=== PATIENT | female | born 1945 | race Caucasian/White ===

== ENCOUNTER → 2019-01-27 12:16 | Outpatient (CLI) | payer MEDICARE, OTHER, SELFPAY ==
--- NOTE | 2019-01-27 | DI.MG.S_ITS ---
BILATERAL DIGITAL SCREENING MAMMOGRAM 3D/2D WITH CAD: 01/27/2019 CLINICAL: Routine screening. Family history of breast cancer. Comparison is made to exams dated: 10/12/2017 mammogram, 04/02/2015 mammogram, and 07/08/2016 mammogram - [facility]. There are scattered fibroglandular elements in both breasts. Current study was also evaluated with a Computer Aided Detection (CAD) system. There is a benign biopsy clip in the left breast. No significant masses, calcifications, or other findings are seen in either breast. There has been no significant interval change. IMPRESSION: NEGATIVE There is no mammographic evidence of malignancy. A 1 year screening mammogram is recommended. This exam was interpreted at Station ID: [id number]. NOTE: For mammograms, a report in lay terms will be sent to the patient. Approximately 15% of breast malignancies will not be visualized mammographically. In the management of a palpable breast mass, a negative mammogram must not discourage biopsy of a clinically suspicious lesion. Electronically Signed By: Bladimir chambers/valentine:01/27/2019 13:14:27 letter sent: Normal Exam ACR BI-RADS Category 1: Negative [id number]
== END ==
PROVIDERS: Family Provider Physician Assistant; PCP Physician Assistant; Visit Provider Physician Assistant
DX: Z12.31 Encounter for screening mammogram for malignant neoplasm of breast (principal); Z80.3 Family history of malignant neoplasm of breast; M85.852 Other specified disorders of bone density and structure, left thigh; Z78.0 Asymptomatic menopausal state; E07.9 Disorder of thyroid, unspecified; Z82.62 Family history of osteoporosis
CPT/HCPCS: 77063; 77067; 77080

== ENCOUNTER → 2020-01-12 15:38 | Outpatient (CLI) | payer MEDICARE, OTHER, SELFPAY ==
--- NOTE | 2020-01-12 15:45 | DI.RAD.S_ITS ---
PROCEDURE: XR CERVICAL SPINE 2V OR 3V INDICATIONS: Numbness in arms and hands TECHNIQUE: 3 view(s) of the cervical spine were acquired. COMPARISON: None. FINDINGS: Bones: No fractures or dislocations to the T1 level. The lateral masses of C1 appear intact on the odontoid view. No suspicious bony lesions. There is multilevel degenerative disc disease and facet osteoarthritis from C2 inferiorly and most pronounced from C4-C7. On the frontal projection the facet osteoarthritis is much more prominent on the left than the right, likely resulting in asymmetric left sided predominant nerve root impingement. Soft tissues: No prevertebral soft tissue swelling. IMPRESSION: Multilevel degenerative changes as discussed with facet osteoarthritis much more prominent on the left than the right and likelihood of multilevel nerve root impingement, left greater than right. Spinal stenosis also would be suspected given the degree of degeneration seen. Given symptomatology and these findings followup by MR scanning may be warranted. Dictated by: Ralph Shaffer M.D. on 01/12/2020 at 17:08 Approved by: Ralph Shaffer M.D. on 01/12/2020 at 17:17
== END ==
PROVIDERS: Family Provider Physician Assistant; PCP Physician Assistant; Referring Provider Physician Assistant; Visit Provider Physician Assistant
DX: M47.22 Other spondylosis with radiculopathy, cervical region (principal); R20.0 Anesthesia of skin
CPT/HCPCS: 72040

== ENCOUNTER → 2020-01-19 12:32 | Outpatient (CLI) | payer MEDICARE, OTHER, SELFPAY ==
--- NOTE | 2020-01-19 | DI.MRI.S_ITS ---
PROCEDURE: MR CERVICAL SPINE WO CON INDICATIONS: Radiculopathy, cervical region TECHNIQUE: Noncontrast sagittal T1 spin echo and T2 fast spin echo, sagittal STIR, foraminal oblique sagittal T2 fast spin echo, and axial gradient echo or T2 fast spin echo through the cervical spine. COMPARISON: None. FINDINGS: Image quality: Excellent. Alignment and Curvature: Grade 1 anterolisthesis of C4 on C5 and C5 on C6. Bone Marrow: No fracture identified. Multilevel degenerative endplate sclerosis and spurring. Diffuse facet arthropathy. Spinal Cord: Visualized spinal cord has normal size and signal. No cerebellar tonsillar herniation. Paraspinous Soft Tissues: No paravertebral masses. Prevertebral soft tissues are normal in thickness. C2-C3: Normal appearance. C3-C4: Minimal central canal narrowing. Severe right foraminal stenosis with nerve root compression. Mild left foraminal stenosis. C4-C5: Mild central canal narrowing. Moderate right foraminal stenosis with nerve root compression. Severe left foraminal stenosis with nerve root compression C5-C6: Minimal central canal narrowing. Mild to moderate right foraminal stenosis with borderline nerve root compression. Severe left foraminal stenosis with neurocompression C6-C7: Minimal central canal narrowing. Moderate foraminal stenosis, with nerve root compression. Severe left foraminal stenosis with neurocompression C7-T1: No definite central or right foraminal stenosis. Mild left foraminal narrowing with slight nerve root compression IMPRESSION: Multilevel cervical spondylosis and facet arthropathy Grade 1 anterolisthesis of C4 on C5 and C5 on C6 No high-grade canal stenosis. Diffuse, bilateral foraminal stenoses as detailed above by spinal level. Dictated by: Sujit Yoon M.D. on 01/19/2020 at 13:55 Approved by: Sujit Yoon M.D. on 01/19/2020 at 14:04
== END ==
PROVIDERS: Family Provider Physician Assistant; PCP Physician Assistant; Referring Provider Physician Assistant; Visit Provider Physician Assistant
DX: M47.22 Other spondylosis with radiculopathy, cervical region (principal); M48.02 Spinal stenosis, cervical region; M43.12 Spondylolisthesis, cervical region
CPT/HCPCS: 72141

== ENCOUNTER 2020-05-09 01:07 | Observation (INO) | payer MEDICARE, OTHER, SELFPAY ==
[2020-05-09] VITALS (16 sets, daily range): BP systolic 90–125; BP diastolic 45–72; PULSE 68–108; RESP 13–20; TEMP 36.1–37.2; O2SAT 92–99; BMI 25.0
--- NOTE | 2020-05-09 | PATH_ITS ---
[facility] Accession Number: [id number] . 01 Material submitted: . appendix - APPENDIX . 01 Clinical history: . SENT BY [employer]; STATES APPENDICITIS/ABD PAIN . 02 Diagnosis: Appendix, Appendectomy: Acute appendicitis and serositis with features of disruption / possible rupture at gross examination. Small, distored portion of smooth muscle, possibly a diverticulum or fibrous obliteration of the appendiceal tip; immunohistochemistry studies pending for further characterization. V 05/14/2020 1504 Local . 02 Electronically signed: . Denise Flowers MD, Pathologist NPI- [id number] . 01 Gross description: . Specimen A is received in formalin, labeled with patient identification and appendix. It consists of a disrupted vermiform appendix measuring 2.8 cm in length and up to 1.1 cm in diameter. The attached yellow-jo and lobulated mesoappendiceal adipose tissue is 4.5 x 2.4 x 1.5 cm. The proximal end is inked blue. The serosa is pink-jo, dull, and hemorrhagic. Sectioning reveals a pinpoint lumen. The mucosa is white-jo and rough. The wall thickness is up to 0.5 cm. The entire appendix is submitted in three cassettes. . Summary of sections: A1 - proximal margins and cross-sections of appendix, two pieces. A2-A3 - the entire bisected appendiceal tips, pair, one piece each. ([id number])) /V 05/14/2020 1437 Local . 02 Pathologist provided ICD-10: K35.80 . 02 CPT . 248449, [id number] Performed at: 01 [facility] [address], [place], [place] [id number] MD Jerry Tejeda MD Phone: [phone] Performed at: 02 [facility] [id number] [place] [id number] MD Yue Burton MD Phone: [phone]
--- NOTE | 2020-05-09 01:33 | ED.ABDPAIN ---
HPI - Abdominal Pain General Chief Complaint: Abdominal Pain Stated Complaint: sent by [facility]/ appendicitis/abd pain Time Seen by Provider: 05/09/20 01:09 Source: patient Mode of arrival: Ambulatory Limitations: no limitations History of Present Illness HPI narrative: 74-year-old female nonsmoker with history of hypothyroid presents with a chief complaint of right lower quadrant pain gradually worsening over the course of the day. She has had fever and nausea but no vomiting. Her pain worsens with movement and improves with rest. She denies any diarrhea nor dysuria, frequency or urgency. She initially presented to an outside facility and was diagnosed with acute appendicitis and stabs were taken to arrange for transfer here as this is where her primary care provider works and where she feels most comfortable. She had a CT at an outside facility noting a dilation of the appendix measuring 17 mm, lying posterior to the cecum without pneumoperitoneum or abscess. She has been NPO over the course of the day. She has an IV in place and labs were sent over noting elevation her white blood cell count. She denies any exposure to persons known to have [place] it has had no symptoms but expects to be swabbed here. complaint: abdominal pain Onset (ago): hour(s) Pain Consistency: constant Location: RLQ Severity: moderate Quality: cramping and aching Radiation: none Relieving factors: rest Exacerbating factors: movement Associated symptoms: nausea and fever Related Data Home Medications Medication Instructions Recorded Confirmed cyanocobalamin (vitamin B-12) 2,500 #0 10/23/17 levothyroxine 50 mcg PO DAILY 05/09/20 05/09/20 Allergies Allergy/AdvReac Type Severity Reaction Status Date / Time No Known Drug Allergies Allergy Verified 05/09/20 01:36 Review of Systems Constitutional Constitutional: Denies chills, Denies fatigue, Reports fever(s), Denies frequent falls, Denies lethargy and Denies weakness Eyes Eyes: Denies change in vision, Denies eye discharge, Denies irritation and Denies loss of vision ENT Ears, Nose, Mouth, and Throat: Denies change in voice, Denies dizziness, Denies neck pain, Denies sore throat and Denies throat swelling Cardiovascular Cardiovascular: Denies chest pain, Denies irregular heart rhythm, Denies lightheadedness, Denies palpitations, Denies dyspnea, Denies dyspnea on exertion and Denies orthopnea Respiratory Respiratory: Denies cough, Denies dyspnea, Denies dyspnea on exertion and Denies wheezing Gastrointestinal Gastrointestinal: Reports abdominal pain, Denies change in bowel habits, Denies diarrhea, Reports nausea and Denies vomiting Musculoskeletal Musculoskeletal: Denies neck pain and Denies numbness Integumentary/Breasts Skin/Breast: Denies pruritus, Denies erythema, Denies rash and Denies wounds Neurologic Neurologic: Denies behavioral changes, Denies confusion, Denies dizziness, Denies frequent falls, Denies loss of vision, Denies numbness and Denies weakness Psychiatric Psychiatric: Denies anxiety, Denies behavioral changes, Denies confusion, Denies depression, Denies homicidal ideation and Denies suicidal ideation Endocrine Endocrine: Denies fatigue, Denies flushing and Denies palpitations Hematologic/Lymphatic Hematologic/Lymphatic: Denies easy bruising Allergic/Immunologic Allergic/Immunologic: Denies urticaria, Denies throat swelling and Denies wheezing Patient History Surgical History Status post arthroscopy Status post delivery Status post parathyroidectomy Social History Smoking Status: Never smoker Smoking Status: Never smoker alcohol intake frequency: 0-2 drinks per day Exam Narrative Exam Narrative: GENERAL: [74] year old patient appears stated age. Well-nourished, well-developed patient, in mild distress. HEAD: Atraumatic. Normocephalic. EYES: Pupils equal round and reactive. Extraocular motions intact. No scleral icterus. No injection or drainage. ENT: Nose without bleeding, purulent drainage. Throat without erythema, tonsillar hypertrophy or exudate. Airway patent. NECK: Trachea midline. Non tender CARDIOVASCULAR: Regular rate and rhythm without murmurs, gallops, or rubs. RESPIRATORY: Clear to auscultation. Breath sounds equal bilaterally. No wheezes, rales, or rhonchi. GASTROINTESTINAL: Abdomen soft, tender in the right lower quadrant with localized peritonitis, nondistended. Negative heel tap, obturator or Rovsing EXTREMITIES: No edema or joint tenderness. BACK: Nontender without deformity or crepitance. No flank tenderness. NEURO: AOx3. SKIN: No rash or erythema of visible areas Course Course Course Narrative: patient expected by surgery, Dr. Steele contacted, will see patient early this morning for planned surgical intervention Discharge Plan Departure Patient Disposition: Admitted as Observation Clinical Impression: Acute appendicitis Qualifiers: Acute appendicitis type: with localized peritonitis Appendicitis gangrene presence: without gangrene Appendicitis perforation presence: without perforation Appendicitis abscess presence: without abscess Qualified Code(s): K35.30 - Acute appendicitis with localized peritonitis, without perforation or gangrene Admit Date/Time: 05/09/20 01:23 Admit Provider: Gutierrez Steele
[2020-05-09] MEDS: PIPERACILLIN-TAZO 3.375 GM/50 ML FROZ.PIGGY IV ×3 (02:15→20:36)
[2020-05-09] MEDS: SODIUM CHLORIDE 0.9% 1,000 ML 125 ML IV ×2 (02:15→11:19)
[2020-05-09 02:31] LABS: COVID19 -Nasal RAPID Negative (Negative)
--- NOTE | 2020-05-09 07:19 | PM.HP.1 ---
History of Present Illness History of Present Illness Date Patient Seen: 05/09/20 Time Patient Seen: 07:00 Chief complaint: sent by [facility]/states appendicitis/abd pain Narrative: The patient is a woman who developed pain in her right abdomen 2 evenings ago. The pain increased and became more diffuse yesterday. It was persistent all through the day. She came to the ER it would be and requested transfer to our institution for surgical treatment. She has never had this pain before. The pain increases with movement and with palpation. Pain level is about the same as it was in the ER last night. It has not increased. Her only prior operations are a . Patient History Medical History (Updated 05/09/20 @ 07:34 by Gutierrez Steele MD) Arthritis (Acute) Hypothyroidism (Acute) Surgical History Status post arthroscopy Status post delivery Status post parathyroidectomy Family & Social History Social History: household members none Prior Living Arrangements House Safety & Behavioral: Feels Safe in Current Yes Environment Been Physically Hurt or No Threatened By a Person Suicidal Ideation Description None Suicide Plan Description No Plan Tobacco & Substance use: Smoking Status Never smoker alcohol intake current alcohol intake frequency a few times a week Substance Use Type does not use Meds Home Medications and Allergies Home Medications Medication Instructions Recorded Confirmed Type levothyroxine 50 mcg PO DAILY 05/09/20 05/09/20 History Allergies Allergy/AdvReac Type Severity Reaction Status Date / Time No Known Drug Allergies Allergy Verified 05/09/20 01:36 Review of Systems Review of Systems Narrative: Patient denies any visual difficulties at this time. No unusual hair loss. 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 That apparently went well. No double vision pain arise no earaches tinnitus no sore throat no trouble swallowing no tooth aches no cough cold or asthma. No chest pain unusual shortness of breath or heart problems or murmurs that she is aware of. She has had a parathyroidectomy and her calcium levels she reports as being normal since. The patient had a colonoscopy years ago. She is not sure exactly when but she says it has been sometime ago. No black or bloody bowel movements. No unusual diarrhea or constipation. No dysuria or hematuria or history of kidney stones. No seizures or blackouts. No anxiety or depression. Patient does get numbness in her fingers at times and has been told it is probably due to carpal tunnel. It goes away when she gets up And moves about. No unusual bruising or bleeding. No fever chills and no skin lesions that are new or worrisome to her. She does have arthritis in both knees and hip. She says she will ultimately need a knee replacement but is not ready for that yet. Exam Vital Signs (past 8 hours): - 05/09/20 01:15 05/09/20 01:52 05/09/20 01:57 Temperature 98.9 F 97.5 F L Pulse Rate 108 H 106 H 103 H Respiratory Rate 19 16 18 Blood Pressure 125/72 117/70 125/72 Pulse Oximetry 99 97 99 Oxygen Delivery Method Room Air Oxygen Flow Rate 0 Narrative Exam Narrative: Cooperative woman in no apparent distress though she is laying still. Vital signs noted. Her eyes are nonicteric. Pupils are round reactive to light. Ears without lesion. Nasal septum midline no polyps seen. Teeth are intact. Mucosa of the mouth is little dry with no open lesions. No splits in the lips. Neck is supple. There are no nodes in the neck or supraclavicular areas. Trachea is midline mobile. I feel no masses in the neck or thyroid. Her lungs are clear to auscultation without rales or rhonchi. Equal percussion. Heart regular rate and rhythm without murmur gallop. No bruit in the neck. Abdomen is distended soft. There is tenderness in the right lower quadrant. No guarding at this time. No palpable masses. No ventral hernias appreciated. 2+ pulses at the wrist. Extremities without cyanosis clubbing edema or deformity. Patient is alert and oriented x3. Speech rate and content are appropriate. Affect is appropriate. Objective Imaging CT scan - abdomen: Radiologist's impression: Consistent with acute appendicitis. Labs Labs: Laboratory Results - last 24 hr 05/09/20 01:30 COVID-19 PCR Negative Assessment & Plan Assessment and plan (1) Hypothyroidism: Problem details: Will continue patient's levothyroxine. She is on fairly low dose. She does not really have any symptoms of hypo her or hypothyroidism at this time. Will start this after her operation. Status: Acute (2) Acute appendicitis: Problem details: Discussed laparoscopic appendectomy with the patient. Risk of bleeding, infection, hernia discussed with her. Alternate diagnoses discussed. All questions were answered. She appears to understand and wishes to proceed. Will fit her into the OR schedule hopefully this morning. Qualifiers: Acute appendicitis type: with localized peritonitis Appendicitis abscess presence: without abscess Appendicitis gangrene presence: without gangrene Appendicitis perforation presence: without perforation Qualified Code(s): K35.30 - Acute appendicitis with localized peritonitis, without perforation or gangrene Status: Acute Quality VTE Deep Vein Thrombosis/Pulmonary Embolism Present on Admission: No
--- NOTE | 2020-05-09 08:03 | PM.PREOP ---
Pre-operative Note COVID-19 COVID-19 status: Negative Result date/Date tested (Pos, Neg/Pending): 05/09/20 Interval Note History & Physical reviewed/Exam performed by Physician: Yes Changes to H&P: No
--- NOTE | 2020-05-09 10:42 | PC.NURSE ---
Patient will be going to surgery around 1230 today. She is A&Ox3, denies pain and is mostly sleeping. IVF infusing and patient is tolerating well. She knows to call if she needs pain medication.
[2020-05-09] MEDS: LACTATED RINGERS 1,000 ML 42 ML IV (13:31)
--- NOTE | 2020-05-09 14:02 | SUR.OPER ---
Supine on padded OR bed, head on pillow, arms secured on padded arm boards at <90 degrees abduction, legs uncrossed, safety belt at thigh, tape over blanket over lower legs.
[2020-05-09] MEDS: BUPIVACAINE 0.5% (PF) VIAL 30 ML INJ (14:09)
--- NOTE | 2020-05-09 14:33 | CM.DANOTE ---
Patient is a 74 year old female who was admitted on 05/09/20 for Acute Appendicitis. Pt has [facility] and [employer] for insurance and her PCP is Jeannine Egan. EMR was reviewed. Per Surgeon, surgery recommended for Lap Appe and scheduled for surgery today around 1200. SW met bedside with pt and explained role and pt confirms that she lives alone in [place] and has local supportive friends and neighbors but no local family. Pt drives and is independent at baseline and fairly active. Son/DAYNA Bond lives in [place] and has plans to come visit in June and pt hopeful that she will heal quickly after surgery to d/c home without much need for assist. Pt states her friend and neighbor can help if needed with hauling groceries and things as pt will be restricted from lifting after surgery. Pt denies any hx of HH or SNF and does not anticipate needs at d/c. Friend plans to provide transport at d/c. Plan: SW to follow after surgery today for appendicitis towards confirming pt safe for d/c home with friend support and any further discharge planning needs. AMINA Dykes Discharge Planning/Care Management CM Discharge Assessment Start: 05/09/20 14:31 Freq: Status: Active Protocol: Document 05/09/20 14:31 BF (Rec: 05/09/20 14:33 BF [id number]) Discharge Planning Assessment Assigned Maintenance Trainer [employer]/Assigned Designee Name patricia Ruth Contact Information [phone] Advance Directives? No Advance Directives on File No History Provided By Patient,Medical Record Has Patient been admitted in last 30 No days? Prior Living Arrangements House Household Members none Type of transporation used prior to Drives own vehicle admit Comment Lives at home alone and is independent and drives at baseline Independent with ADL's Yes Is patient alert and oriented? Yes Caregiver for Another No Comment Likely home with friend assist pending surgery Barriers to Discharge No Discharge Plan Home Transportation Arrangement Friend can provide transport home at d/c Referrals Initiated None needed Additional Comment Waiting for post surgery needs Whiteboard Updated in Patient Room with Yes name and ext. # of Maintenance Trainer Review Status In Process Please Provide Date Initial DC 05/09/20 Assessment Was Performed Next Review Type Continued Stay Review
--- NOTE | 2020-05-09 15:21 | PM.OP.1 ---
Operative Date/Time/Diagnoses Date of procedure: 05/09/20 Time of procedure: 15:21 Pre-op diagnosis: ACUTE APPENDICITIS Post-op diagnosis: same Procedure & Clinicians Procedure: Laparoscopic appendectomy Same procedure as scheduled: Yes Indications: Abdominal pain, right lower quadrant tenderness with an abnormal CT consistent with appendicitis Surgeon: Gutierrez Steele Click Yes if Unassisted: Yes Anesthesia Type: General Operative Notes Findings: Appendix inflamed. Not clearly perforated. Closure Type: primary Specimen(s): other (Appendix) Prosthetic devices, grafts, tissues, transplants, or devices: None Estimated Blood Loss (mL): 10 Blood products transfused: none Procedure in detail: Patient was placed supine on the operating table and underwent general endotracheal anesthesia. A Patricio was placed. She was prepped and draped in the usual fashion. A curvilinear incision was made through an old scar in the infraumbilical site. It was carried down under direct vision in the peritoneal cavity. Stay sutures of 0 Vicryl were placed in the fascia. A 12 mm port was inserted and the abdomen is insufflated. Two additional ports were placed 1 in between the pubis and umbilicus and 1 left lower quadrant. The patient was repositioned using the bed controls and identified the base of the appendix. I could not see much beyond it due to adhesions. These were taken down sharply and with cautery. I was able mobilize the appendix. It was difficult to tell where the tip was and therefore I made a window at the base of the appendix through the mesentery and placed 2 0 Vicryl ties at this level. They were tied down. A clamp was placed distal to this and the appendix was transected and the dissection of the mesentery commenced. I divided most of this with cautery or dissection. Anything vascular was cauterized before dividing. The appendix is freed and immediately placed in a bag and removed without difficulty. The only spillage was where there was transection (a drop or 2 of liquid), which is impossible to prevent. The right abdomen was irrigated and suctioned free of fluid. The pelvis was irrigated and suctioned free of fluid. There is no ongoing bleeding. The ports were all removed. Stay sutures at the umbilicus were tied after placing a 2 0 PDS between them. The wounds were irrigated local anesthetic was infiltrated and a 4 0 Vicryl subcuticular stitch was used to close the skin in all areas. Mastisol and Steri-Strips were placed. Dressing was applied and patient tolerated the procedure well. Complications: none Post-operative Condition: stable Disposition: PACU
--- NOTE | 2020-05-09 15:52 | SUR.PHASEI ---
Pt arises to voice, dressings x3 D&I
--- NOTE | 2020-05-09 16:00 | SUR.PHASEI ---
Pt awake now and on room air without problems, denies pain and dressings x3 to abdomen D&I, denies nausea and refusing ice chips or oral fluids at this time. Report given to floor RN
[2020-05-09] MEDS: LEVOTHYROXINE 50 MCG TABLET PO (17:09)
[2020-05-09] MEDS: KETOROLAC 15 MG/ML VIAL IV (17:09)
[2020-05-09] MEDS: SODIUM CHLORIDE 0.9% FLUSH 10 ML IV (17:10)
[2020-05-09] MEDS: LACTATED RINGERS 1,000 ML 125 ML IV (17:14)
--- NOTE | 2020-05-09 18:40 | PC.NURSE ---
ANSHUL Shift. pt AO and receptive to care. pt arrived from OR at approximately 1510. Reporting a 4-6/10 pressure type pain to abdomen. 3 lap sites covered with a Band-aid type dressing, CDI. LR infusing to right wrist at 125ml/hr and tolerating well. IS at bedside and pt utilizing. Tolerating a clear diet without nausea. SCD's on. IV toradol for pain (went from a 6/10 to 4/10).
[2020-05-10] MEDS: LACTATED RINGERS 1,000 ML 125 ML IV (01:32)
[2020-05-10 05:00] VITALS: BP 105/58; PULSE 73; RESP 18; TEMP 36.6; O2SAT 95
[2020-05-10 05:46] LABS: Add Manual Diff / Slide Review NO; Basophils Absolute Auto 0 /uL (0-100); Basophils Percent Auto 0.1 % (0-2); Eosinophils Absolute Auto 0 /uL (0-450); Hematocrit 30.8 % (36-46); Hemoglobin 10.9 g/dL (12.0-16.0); Lymphocytes Absolute Auto 500 /uL (1100-4500); Mean Corpuscular HGB Conc 35.5 % (30-36); Mean Corpuscular Hemoglobin 35.1 PG (26-34); Mean Corpuscular Volume 99.1 fL (80-100); Monocytes Absolute Auto 300 /uL (0-900); Monocytes Percent Auto 4.4 % (3-14); Neutrophils Absolute Auto 6900 /uL (1500-7000); Neutrophils Percent Auto 88.5 % (50-75); Platelet Count 199 X10^3/uL (150-400); Red Blood Cell Count 3.11 X10^6/uL (4.0-5.2); Red Cell Distribution Width 13.1 % (11.6-14.8); White Blood Cell Count 7.8 X10^3/uL (4.5-11.0)
[2020-05-10] MEDS: LEVOTHYROXINE 50 MCG TABLET PO (06:15)
--- NOTE | 2020-05-10 06:15 | PC.NURSE ---
At time of assessment had not passed flatus post-op. At time of AM meds reports she passed flatus overnight.
[2020-05-10 07:45] VITALS: BP 98/67; PULSE 82; RESP 18; TEMP 36.8; O2SAT 93
[2020-05-10] MEDS: OXYCODONE/ACETAMINOPHEN 5/325 TABLET 2 TAB PO ×2 (08:35→13:36)
[2020-05-10] MEDS: ENOXAPARIN 40 MG/0.4 ML SYRINGE SUBCUT (08:38)
--- NOTE | 2020-05-10 09:21 | CM.DPC ---
DCP: continued: Case received, EMR reviewed and plan for d/c to home setting after recovery from surgery is noted. Pt will have support of friend/neighbor and a friend will be taking her home. Dr. Steele did take pt to surgery yesterday late afternoon as planned: Laproscopic Appendectomy: appendix inflamed but no perforation per his op note. P: discuss in Team Rounds and follow prn for any d/c needs that may arise.
[2020-05-10 11:24] VITALS: BP 92/60; PULSE 68; RESP 18; TEMP 36.6; O2SAT 98
--- NOTE | 2020-05-10 13:08 | P.DS_ITS ---
History of Present Illness History of Present Illness Chief complaint: sent by [facility]/states appendicitis/abd pain Narrative: The patient is a woman who developed pain in her right abdomen 2 evenings ago. The pain increased and became more diffuse yesterday. It was persistent all through the day. She came to the ER it would be and requested transfer to our institution for surgical treatment. She has never had this pain before. The pain increases with movement and with palpation. Pain level is about the same as it was in the ER last night. It has not increased. Her only prior operations are a . Discharge Providers Provider Date of admission: 05/09/20 01:23 Discharge Date: 05/10/20 Primary care physician: Jeannine Egan PA-C Consults: 05/09/20 16:49 Consult to Discharge Planning Routine Comment: Discharge provider: Gutierrez Steele MD Summary Hospital Course Discharge Diagnosis: acute appendicitis with local inflammation. Hypothyroidism chronic controlled with medication Hospital Course: The patient was admitted begun on IV antibiotics and taken to the operating room where she underwent laparoscopic appendectomy. There did not appear to be perforation. Postoperatively her white blood cell count came down to normal. She was tolerating a diet and she was discharged to follow up in the office. Exam Vital Signs (past 8 hours): - 05/10/20 07:45 05/10/20 11:24 Temperature 98.2 F 98 F Pulse Rate 82 68 Respiratory Rate 18 18 Blood Pressure 98/67 92/60 Pulse Oximetry 93 98 Oxygen Delivery Method Room Air Oxygen Flow Rate 0 Narrative Exam Narrative: Band-Aids intact and dry. No evidence of cellulitis. Abdomen is protuberant/distended but soft and no unusual tenderness. Preoperative pain is resolved. Objective Labs Result Diagrams: 05/10/20 05:11 Labs: Laboratory Results - last 24 hr 05/10/20 05:11 WBC 7.8 RBC 3.11 L Hgb 10.9 L Hct 30.8 L MCV 99.1 MCH 35.1 H MCHC 35.5 RDW 13.1 Plt Count 199 Neut % (Auto) 88.5 H Lymph % (Auto) 7.0 L Barron % (Auto) 4.4 Eos % (Auto) 0.0 L Baso % (Auto) 0.1 Neut # (Auto) 6900 Lymph # (Auto) 500 L Barron # (Auto) 300 Eos # (Auto) 0 Baso # (Auto) 0 Discharge Plan Discharge Plan Patient Disposition: Home Discharge comment: Your pain medicine prescription was sent to [facility] in [place] Discharge orders & Medications Prescriptions: New oxycodone-acetaminophen [Percocet] 5-325 mg tablet 1 tab PO Q4H PRN (Reason: painful procedure) Qty: 10 RF: 0 Continued levothyroxine 50 mcg tablet 50 mcg PO DAILY RF: 0 Follow up/Referrals: Jeannine Egan PA-C [Primary Care Provider] - Gutierrez Steele MD [Physician] - 05/24/20 1:45 pm (Follow up appointment is May 24 at 1:45 PM, please check in at 1:30 PM. If you need to reach a doctor please call the office. If it is after hours listen to the entire message and at the end you will be automatically connected with our page tool machine set up operator who will call the doctor on-call for our practice.) Diet/Activity/Treatments Diet: Diet as Tolerated Activity: Avoid lifting over 10 lb or straining for the next 4 weeks. You may walk. Skin/Wound/Dressing Care Report to your healthcare provider any signs of infection, such as:: chills, fever, increased pain, unusual drainage and unusual redness Dressing: Removed Band-Aids tomorrow you may shower. Leave Steri-Strips tape under the Band-Aids fall off on its own. Visit Report/Discharge Packet Instructions: DI for an Appendectomy, How to Prevent Falls, DI for Postoperative Pain, DI for Prescription Opioid Use, Oxycodone/Acetaminophen (By mouth) Visit Report Forms: Patient Portal/API, Stroke Signs & Symptoms Discharge Data Primary Care Provider: Jeannine Egan Attending Provider: Gutierrez Steele Admit Date/Time: 05/09/20 01:23 Quality VTE Deep Vein Thrombosis/Pulmonary Embolism Present on Admission: No
--- NOTE | 2020-05-10 13:47 | PC.NURSE ---
Day Shift- Pt reported 2-3/10 aching pain to abd, more to right side with tenderness. PRN Percocet 1/2 tab given per pt request with good effect. 1/2 tab PRN dose given prior to discharge. Discharge summary packet reviewed with pt. F/U appointment made and pt aware. Pt states she will get milk of magnesia per Dr. Steele recommendations to prevent constipation. Pt states has all belongings and her friend Denice will be picking her up for discharge to take home. pt left unit in no distress at 1338 via wheelchair with PEARL GLUE OPERATOR.
--- NOTE | 2020-05-17 17:06 | PC.NURSE ---
Late Entry: Zosyn infusion initiated 05/09 at 20:36, complete 05/09 at 21:06.
== END 2020-05-10 13:38 | disposition home or self-care (01) ==
LOC: ED 01:23 → AC 01:24
PROVIDERS: Admitting Provider Specialist; Emergency Provider Emergency Medicine; Family Provider Physician Assistant; PCP Physician Assistant; Referring Provider Emergency Medicine; Visit Provider Specialist
PROC: 0DTJ4ZZ Resection of Appendix, Percutaneous Endoscopic Approach (ICD-10-PCS; CPT 44970; principal; 2020-05-09 12:45)
DX: K35.30 Acute appendicitis with localized peritonitis, without perforation or gangrene (principal); R10.31 Right lower quadrant pain; E03.9 Hypothyroidism, unspecified; Z11.59 Encounter for screening for other viral diseases
CPT/HCPCS: 44970; 36415; 82962; 85025; 87635; 96365; 96366; 96372; 96375; 99219; 99283; G0378; J1100; J1650; J1885; J2405; J2543; J2704; J3010

== ENCOUNTER → 2020-05-12 10:18 | Outpatient (CLI) | payer MEDICARE, OTHER, SELFPAY ==
[2020-05-09 01:52] VITALS: BMI 25.0
[2020-05-12 11:01] LABS: Add Manual Diff / Slide Review NO; Basophils Absolute Auto 0 /uL (0-100); Basophils Percent Auto 0.8 % (0-2); Eosinophils Absolute Auto 100 /uL (0-450); Eosinophils Percent Auto 1.6 % (2-4); Hemoglobin 12.6 g/dL (12.0-16.0); Lymphocytes Absolute Auto 1200 /uL (1100-4500); Lymphocytes Percent Auto 18.9 % (25-40); Mean Corpuscular HGB Conc 34.9 % (30-36); Mean Corpuscular Hemoglobin 34.7 PG (26-34); Mean Corpuscular Volume 99.3 fL (80-100); Monocytes Absolute Auto 400 /uL (0-900); Monocytes Percent Auto 7.2 % (3-14); Neutrophils Absolute Auto 4400 /uL (1500-7000); Neutrophils Percent Auto 71.5 % (50-75); Platelet Count 265 X10^3/uL (150-400); Red Blood Cell Count 3.63 X10^6/uL (4.0-5.2); White Blood Cell Count 6.2 X10^3/uL (4.5-11.0)
[2020-05-12 11:16] LABS: Alanine Aminotransferase 16 IU/L (<35); Albumin Globulin Ratio 1.3 (1.0-2.8); Alkaline Phosphatase 64 U/L (38-126); Aspartate Aminotransferase 23 IU/L (14-36); BUN Creatinine Ratio 11.6 (6-22); Bilirubin Total 0.9 mg/dL (0.2-1.3); Blood Urea Nitrogen 8 mg/dL (7-17); Calcium 9.5 mg/dL (8.4-10.2); Carbon Dioxide 31 mmol/L (22-32); Chloride 103 mmol/L (98-107); Estimated Glomerular Filt Rate > 60.0 mL/min (>60); Globulin 3.2 g/dL (1.7-4.1); Glucose 104 mg/dL (80-110); HEMOLYSIS < 15 (0-50); Potassium 3.9 mmol/L (3.4-5.1); Sodium 139 mmol/L (137-145); Total Protein 7.2 g/dL (6.3-8.2)
[2020-05-12 11:32] LABS: Procalcitonin < 0.05 ng/mL (<0.5)
== END ==
PROVIDERS: Family Provider Physician Assistant; PCP Physician Assistant; Referring Provider Specialist; Visit Provider Specialist
DX: K35.30 Acute appendicitis with localized peritonitis, without perforation or gangrene (principal); R50.82 Postprocedural fever
CPT/HCPCS: 36415; 80053; 84145; 85025

== ENCOUNTER → 2020-06-22 12:16 | Outpatient (CLI) | payer MEDICARE, OTHER, SELFPAY ==
[2020-05-09 01:52] VITALS: BMI 25.0
--- NOTE | 2020-06-22 | DI.RAD.S_ITS ---
PROCEDURE: XR CHEST 2V INDICATIONS: Shortness of breath TECHNIQUE: 2 views of the chest were acquired. COMPARISON: None. FINDINGS: Surgical changes and devices: None. Lungs and pleura: Lungs are clear. No pleural effusions or pneumothorax. Mediastinum: Mediastinal contours are normal. Heart size is normal. Bones and chest wall: No suspicious bony abnormalities. Soft tissues appear unremarkable. IMPRESSION: Normal for age, source of current shortness of breath symptoms is not seen. Dictated by: Ralph Shaffer M.D. on 06/22/2020 at 13:14 Approved by: Ralph Shaffer M.D. on 06/22/2020 at 13:14
== END ==
PROVIDERS: Family Provider Physician Assistant; PCP Physician Assistant; Referring Provider Physician Assistant; Visit Provider Physician Assistant
DX: R06.02 Shortness of breath (principal)
CPT/HCPCS: 71046

== ENCOUNTER → 2020-07-05 12:56 | Outpatient (CLI) | payer MEDICARE, OTHER, SELFPAY ==
[2020-05-09 01:52] VITALS: BMI 25.0
--- NOTE | 2020-07-05 | DI.CT.S_ITS ---
PROCEDURE: CT ANGIO CHEST PE PROTOCOL INDICATIONS: SHORTNESS OF BREATH TECHNIQUE: After the administration of intravenous contrast, 2 mm thick sections acquired from the pulmonary apices to the posterior costophrenic angles. 3-dimensional maximum intensity projection (MIP) coronal and sagittal reformats were then acquired through the thorax. For radiation dose reduction, the following was used: automated exposure control, adjustment of mA and/or kV according to patient size. COMPARISON: [facility], CR, XR CHEST 2V, 06/22/2020, 12:39. [facility], RG, CT ABDOMEN/PELVIS WITH CONTRAST, 05/08/2020, 22:15. FINDINGS: Image quality: Excellent. Pulmonary arteries: Pulmonary arteries are normal in size, and demonstrate no intraluminal filling defects to suggest central pulmonary embolism. Lungs and pleura: Linear densities in the lingula the and lower lobes are most likely scars and atelectasis. There is a 1 cm sub solid nodule in the left lower lobe (series 6, image 198), probably round atelectasis. No pleural effusions or pneumothorax. Central and peripheral airways are patent. Mediastinum: Heart size is normal, without pericardial effusion. No mediastinal or hilar adenopathy. Thoracic aorta is normal in caliber and enhancement. Esophagus is normal in caliber. Small hiatal hernia. Bones and chest wall: No suspicious bony lesions. Ribs and thoracic spine appear intact throughout. Thyroid gland is normal. No axillary or supraclavicular adenopathy. Abdomen: A 1 cm cyst is noted in the the anterior segment of the right hepatic lobe. Visualized upper abdominal solid organs appear normal in the early arterial phase of enhancement. IMPRESSION: 1. No evidence for pulmonary embolism. 2. No airspace opacities in lungs. 3. A 1 cm sub solid nodule in the left lower lobe, most likely round atelectasis. Recommend a short-term follow-up CT in 3 months. 4. Lingular and bilateral lower lobe scars and atelectasis. Dictated by: Hai Kumar M.D. on 07/05/2020 at 14:15 Approved by: Hai Kumar M.D. on 07/05/2020 at 14:28
[2020-07-05 13:23] LABS: Add Manual Diff / Slide Review NO; Basophils Absolute Auto 0 /uL (0-100); Basophils Percent Auto 0.7 % (0-2); Eosinophils Absolute Auto 100 /uL (0-450); Eosinophils Percent Auto 1.5 % (2-4); Hematocrit 41.3 % (36-46); Hemoglobin 14.1 g/dL (12.0-16.0); Lymphocytes Absolute Auto 1300 /uL (1100-4500); Lymphocytes Percent Auto 19.3 % (25-40); Mean Corpuscular Hemoglobin 33.6 PG (26-34); Mean Corpuscular Volume 98.9 fL (80-100); Monocytes Absolute Auto 300 /uL (0-900); Monocytes Percent Auto 4.8 % (3-14); Neutrophils Absolute Auto 4900 /uL (1500-7000); Neutrophils Percent Auto 73.7 % (50-75); Platelet Count 271 X10^3/uL (150-400); Red Blood Cell Count 4.18 X10^6/uL (4.0-5.2); Red Cell Distribution Width 13.4 % (11.6-14.8); White Blood Cell Count 6.6 X10^3/uL (4.5-11.0)
[2020-07-05 13:29] LABS: D Dimer 218 ng/mL (<230)
[2020-07-05 13:30] LABS: Alanine Aminotransferase 19 IU/L (<35); Albumin 4.3 g/dL (3.5-5.0); Albumin Globulin Ratio 1.3 (1.0-2.8); Alkaline Phosphatase 71 U/L (38-126); Aspartate Aminotransferase 23 IU/L (14-36); BUN Creatinine Ratio 16.4 (6-22); Bilirubin Total 0.9 mg/dL (0.2-1.3); Blood Urea Nitrogen 12 mg/dL (7-17); Calcium 9.3 mg/dL (8.4-10.2); Carbon Dioxide 25 mmol/L (22-32); Chloride 107 mmol/L (98-107); Cholesterol 272 mg/dL (140-199); Estimated Glomerular Filt Rate > 60.0 mL/min (>60); Globulin 3.2 g/dL (1.7-4.1); Glucose 109 mg/dL (80-110); HDL Cholesterol 76 mg/dL (40-60); HEMOLYSIS < 15 (0-50); LDL Cholesterol Calculated 142 mg/dL (<100); Potassium 3.7 mmol/L (3.4-5.1); Sodium 138 mmol/L (137-145); Total Protein 7.5 g/dL (6.3-8.2); Triglycerides 269 mg/dL (35-150)
[2020-07-05 13:38] LABS: NT-proBNP (BNP-Adult 18+) 96 pg/mL (<125)
[2020-07-05 14:08] LABS: TSH w/ Reflex to FT4 2.88 uIU/mL (0.47-4.68)
== END ==
PROVIDERS: Family Provider Physician Assistant; PCP Physician Assistant; Referring Provider Physician Assistant; Visit Provider Physician Assistant
DX: R06.02 Shortness of breath (principal); F41.1 Generalized anxiety disorder; J98.4 Other disorders of lung; J98.11 Atelectasis; R91.1 Solitary pulmonary nodule; E78.5 Hyperlipidemia, unspecified; E03.9 Hypothyroidism, unspecified; K44.9 Diaphragmatic hernia without obstruction or gangrene
CPT/HCPCS: 36415; 71275; 80053; 80061; 83880; 84443; 85025; 85379; Q9967

== ENCOUNTER → 2020-10-04 12:53 | Outpatient (CLI) | payer MEDICARE, OTHER, SELFPAY ==
[2020-05-09 01:52] VITALS: BMI 25.0
[2020-10-04 13:32] LABS: COVID19 -Nasal RAPID Negative (Negative)
== END ==
PROVIDERS: Family Provider Physician Assistant; PCP Physician Assistant; Referring Provider Internal Medicine; Visit Provider Internal Medicine
DX: Z11.59 Encounter for screening for other viral diseases (principal)
CPT/HCPCS: 87635; C9803

== ENCOUNTER → 2020-10-05 08:59 | Outpatient (CLI) | payer MEDICARE, OTHER, SELFPAY ==
[2020-05-09 01:52] VITALS: BMI 25.0
--- NOTE | 2020-10-09 08:25 | PM.PFT.1 ---
Pulmonary Function Test Referral & Results Date Patient Seen: 10/05/20 Requesting provider: Jeannine Egan Results: The spirometry demonstrates an FVC of 2.61 L which is 87% of predicted. The FEV1 was measured at 2.07 L which is 92% of predicted. The FEV1/FVC ratio was 79 which is 105% of predicted. Following the administration of bronchodilator there was no appreciable change to above normal numbers. Lung volumes show an SVC of 2.56 L which is 88% of predicted. The diffusing capacity was measured at 17.78 which is 69% of predicted. No hemoglobin value was provided, so no correction for potential anemia could be made, if appropriate. The maximum voluntary ventilation was reduced slightly Interpretation: This study demonstrates normal spirometry and probably normal overall. There may be a minimal reduction in maximum voluntary ventilation Clinical correlation suggested
== END ==
PROVIDERS: Family Provider Physician Assistant; PCP Physician Assistant; Referring Provider Physician Assistant; Visit Provider Physician Assistant
DX: R06.02 Shortness of breath (principal); J98.8 Other specified respiratory disorders
CPT/HCPCS: 94060; 94726; 94729

== ENCOUNTER → 2020-11-20 12:27 | Outpatient (CLI) | payer MEDICARE, OTHER, SELFPAY ==
[2020-05-09 01:52] VITALS: BMI 25.0
--- NOTE | 2020-11-20 12:44 | DI.CT.S_ITS ---
PROCEDURE: CT CHEST WO CON INDICATIONS: 3 MONTH F/U LLL LUNG NODULE TECHNIQUE: Noncontrast 2.0-2.5 mm thick sections acquired from the pulmonary apices to the posterior costophrenic angles. 7 mm thick axial MIP and 5 mm coronal and sagittal reformats were then acquired. A low radiation dose technique was utilized. COMPARISON: [facility], CT, CT ANGIO CHEST PE PROTOCOL, 07/05/2020, 13:51. FINDINGS: Image quality: Diagnostic, given the low radiation dose technique. Lungs and pleura: Mild platelike atelectasis is present in the dependent lung bases. The posterior left basilar pulmonary radiopacities described on the study dated July 05, 2020 have resolved and may have represented aspiration or infection. No new acute airspace opacities or pulmonary nodules. No pleural effusion or pneumothorax. Mediastinum: Heart size is normal. No pericardial effusion. No mediastinal adenopathy by size criteria. Thoracic aorta and central pulmonary arteries are normal in size. Scattered atheromatous calcifications are present within the aortic arch. Esophagus is normal in caliber. No hiatal hernia. Bones and chest wall: No suspicious bony lesions. No vertebral body compression fractures. No axillary or supraclavicular adenopathy by size criteria. Thyroid gland is unremarkable . Abdomen: Visualized upper abdomen solid organs and bowel loops appear normal in the absence of contrast. IMPRESSION: 1. Resolution of the left basilar pulmonary radiopacities when compared with the CT dated July 05, 2020. No further follow-up recommended. 2. No new acute airspace opacities or pulmonary nodules. Fleischner Society criteria for SOLID lung nodule followup. Nodule size (mm)Low-risk patientHigh-risk patient<6 (single or multiple)No routine followup.Optional CT at 12 months. 6-8 (single or multiple)CT at 6-12 months, then optional CT at 18-24 mo.CT at 6-12 months, then CT at 18-24 months. >8 (single)CT at 3 months, PET-CT, or biopsy. Same as for low-risk pts. >8 (multiple)CT at 3-6 months, then optional CT at 18-24 mo.CT at 3-6 months, then CT at 18-24 months. Fleischner Society criteria for SUB-SOLID lung nodule followup. Solitary pure ground-glass nodules<6 mm (ground glass or part solid)No followup needed. 6 mm or larger (ground glass)CT at 6-12 months to confirm persistence, then CT every 2 years until 5 years.6 mm or larger (part solid)CT at 3-6 months to confirm persistence, then annual CT until 5 years if unchanged and solid component remains <6 mm. Multiple sub-solid nodules<6 mmCT at 3-6 months, then CT consider at 2 & 4 years for high risk patients. [address] at 3-6 months. Subsequent management based on most suspicious lesions. Recommendations do not apply to lung cancer screening, patients with immunosuppression, or patients with known primary cancer. Dictated by: Aleksandra Boykin M.D. on 11/20/2020 at 14:59 Approved by: Aleksandra Boykin M.D. on 11/20/2020 at 15:02
== END ==
PROVIDERS: Family Provider Physician Assistant; PCP Physician Assistant; Referring Provider Physician Assistant; Visit Provider Physician Assistant
DX: R91.1 Solitary pulmonary nodule (principal)
CPT/HCPCS: 71250

== ENCOUNTER → 2020-12-20 19:07 | Outpatient (ROUT) | payer MEDICARE, OTHER, SELFPAY ==
[2020-05-09 01:52] VITALS: BMI 25.0
[2020-12-20 19:22] LABS: Hematocrit 40.8 % (36-46); Hemoglobin 13.6 g/dL (12.0-16.0); Mean Corpuscular HGB Conc 33.3 % (30-36)
[2020-12-20 19:25] LABS: Mean Corpuscular Hemoglobin 33.4 PG (26-34); Mean Corpuscular Volume 100.2 fL (80-100); Platelet Count 259 X10^3/uL (150-400); Red Blood Cell Count 4.07 X10^6/uL (4.0-5.2); Red Cell Distribution Width 12.6 % (11.6-14.8)
[2020-12-20 19:35] LABS: Alanine Aminotransferase 18 IU/L (<35); Albumin 4.3 g/dL (3.5-5.0); Albumin Globulin Ratio 1.6 (1.0-2.8); Alkaline Phosphatase 72 U/L (38-126); Aspartate Aminotransferase 26 IU/L (14-36); BUN Creatinine Ratio 22.5 (6-22); Bilirubin Total 0.6 mg/dL (0.2-1.3); Blood Urea Nitrogen 16 mg/dL (7-17); Calcium 9.6 mg/dL (8.4-10.2); Carbon Dioxide 28 mmol/L (22-32); Chloride 105 mmol/L (98-107); Estimated Glomerular Filt Rate > 60.0 mL/min (>60); Globulin 2.7 g/dL (1.7-4.1); Glucose 92 mg/dL (80-110); HEMOLYSIS < 15 (0-50); Potassium 3.8 mmol/L (3.4-5.1); Sodium 140 mmol/L (137-145)
[2020-12-20 19:39] LABS: INR 1.1 (0.9-1.3); Prothrombin Time 12.2 SECONDS (10.1-12.7)
[2020-12-20 19:46] LABS: Neutrophils Absolute Manual 4080 /uL (3000-5900); RBC Morphology Normal Morphology; Total Cells Counted 100
== END ==
PROVIDERS: Family Provider Physician Assistant; PCP Physician Assistant; Visit Provider Physician Assistant
DX: E03.9 Hypothyroidism, unspecified (principal)
CPT/HCPCS: 80053; 85025; 85610

== ENCOUNTER → 2021-10-30 15:49 | Outpatient (CLI) | payer MEDICARE, OTHER, SELFPAY ==
[2020-05-09 01:52] VITALS: BMI 25.0
--- NOTE | 2021-10-30 15:51 | DI.MG.S_ITS ---
BILATERAL DIGITAL SCREENING MAMMOGRAM 3D/2D WITH CAD: 10/30/2021 CLINICAL: Routine screening. Family history of breast cancer. Comparison is made to exams dated: 01/27/2019 mammogram, 10/12/2017 mammogram, and 07/08/2016 mammogram - [facility]. There are scattered fibroglandular elements in both breasts. Current study was also evaluated with a Computer Aided Detection (CAD) system. There is a biopsy clip in the left breast. No significant masses, calcifications, or other findings are seen in either breast. There has been no significant interval change. IMPRESSION: NEGATIVE There is no mammographic evidence of malignancy. A 1 year screening mammogram is recommended. This exam was interpreted at Station ID: [id number]. NOTE: For mammograms, a report in lay terms will be sent to the patient. Approximately 15% of breast malignancies will not be visualized mammographically. In the management of a palpable breast mass, a negative mammogram must not discourage biopsy of a clinically suspicious lesion. Electronically Signed By: Kieran Long M.D., jr/valentine:10/30/2021 17:01:19 letter sent: Normal Exam ACR BI-RADS Category 1: Negative 3341F
== END ==
PROVIDERS: Family Provider Physician Assistant; PCP Physician Assistant; Referring Provider Physician Assistant; Visit Provider Physician Assistant
DX: Z12.31 Encounter for screening mammogram for malignant neoplasm of breast (principal); Z80.3 Family history of malignant neoplasm of breast
CPT/HCPCS: 77063; 77067

== ENCOUNTER → 2022-10-31 12:08 | Outpatient (CLI) | payer MEDICARE, OTHER, SELFPAY ==
[2020-05-09 01:52] VITALS: BMI 25.0
--- NOTE | 2022-10-31 12:10 | DI.MRI.S_ITS ---
PROCEDURE: MR LUMBAR SPINE WO CON INDICATIONS: Spondylosis lumbar region TECHNIQUE: Noncontrast sagittal T1 spin echo and T2 fast echo, sagittal STIR, and T2 fast spin echo through the lumbar spine. In cases with scoliosis, additional coronal T2 fast spin echo may be performed. COMPARISON: [facility], CR, XR LUMBAR SPINE 2 OR 3 VIEWS, 09/16/2022, 15:48. [facility], RG, CT ABDOMEN/PELVIS WITH CONTRAST, 05/08/2020, 22:15. FINDINGS: Image quality: This examination is limited by involuntary motion artifact. Alignment and Curvature: There is normal bony alignment. Bone Marrow: Marrow is of normal overall signal. No acute vertebral body compression fractures. Spinal Cord: Conus medullaris terminates at the L1 level. Visualized cord demonstrates normal signal and size. Paraspinous Soft Tissues: No paravertebral masses. T12-L1: Normal appearance. L1-L2: Normal appearance. L2-L3: Partially bridging anterior osteophytes are seen. L3-L4: Mild loss of disc height is seen. Loss of disc signal is seen. Moderate disc bulge is seen, with a prominent central/left disc extrusion, with mild superior migration of the disc material, as on series 2, image 11 and on series 6, image 5. Mild facet joint hypertrophy is seen. There is at least moderate right-sided and moderate to severe left-sided neural foraminal narrowing. There is a degree of compression seen upon the exiting nerve roots. There is severe central canal narrowing seen at this level. L4-L5: Moderate loss of disc height is seen. Loss of disc signal is seen. Moderate disc bulge is seen, which is eccentric to the right. Mild to moderate facet hypertrophy is seen. There is at least moderate bilateral neural foraminal narrowing. Mild central canal narrowing is seen. L5-S1: At least moderate loss of disc height and disc signal can be seen. At least moderate disc bulge is seen, which is eccentric to the right. There is a mild central disc extrusion, with inferior migration of the disc material. Lower lumbar spine facet arthropathy is seen. There is at least moderate bilateral neural foraminal narrowing seen. There is a degree of compression seen upon the exiting nerve roots. Mild central canal narrowing is seen. IMPRESSION: Multiple levels of lumbar spine degenerative change are seen, including a prominent central/left disc extrusion at L3-L4. There is severe central canal narrowing at this level. Dictated by: Donovan Rice M.D. on 10/31/2022 at 18:28 Approved by: Donovan Rice M.D. on 10/31/2022 at 18:31
== END ==
PROVIDERS: Family Provider Physician Assistant; PCP Physician Assistant; Referring Provider Orthopaedic Surgery Orthopaedic Surgery of the Spine; Visit Provider Orthopaedic Surgery Orthopaedic Surgery of the Spine
DX: M47.816 Spondylosis without myelopathy or radiculopathy, lumbar region (principal); M51.26 Other intervertebral disc displacement, lumbar region; M48.061 Spinal stenosis, lumbar region without neurogenic claudication; M47.817 Spondylosis without myelopathy or radiculopathy, lumbosacral region; M51.27 Other intervertebral disc displacement, lumbosacral region; M48.07 Spinal stenosis, lumbosacral region
CPT/HCPCS: 72148

== ENCOUNTER 2023-01-08 12:25 | Outpatient (CLI) | payer MEDICARE, OTHER, SELFPAY ==
[2020-05-09 01:52] VITALS: BMI 25.0
--- NOTE | 2023-01-08 12:28 | DI.RAD.S_ITS ---
PROCEDURE: PAIN L INTERLAMINAR/CAUDAL INJ INDICATIONS: SPONDYLOSIS COMPARISON: [facility] [place], CR, XR LUMBAR SPINE 2 OR 3 VIEWS, 09/16/2022, 15:48. FINDINGS: Fluoroscopic spot filming was performed to verify placement of a spinal needle at the L3-L4 level, as labeled on the films. Appropriate location of the needle tip was confirmed by injection of iodinated contrast. IMPRESSION: Intraprocedural examination within normal limits. Dictated by: Donovan Rice M.D. on 01/08/2023 at 13:30 Approved by: Donovan Rice M.D. on 01/08/2023 at 13:31
[2023-01-08 13:00] VITALS: BP 139/76; PULSE 90; RESP 18; TEMP 36.7; O2SAT 98
[2023-01-08 13:14] VITALS: BP 141/88; PULSE 98; RESP 22; O2SAT 97
[2023-01-08] MEDS: methylPREDNISolone acetate 80 MG/ML VIAL INJ (13:15)
[2023-01-08] MEDS: BUPIVACAINE 0.25% (PF) VIAL 2 ML INJ (13:15)
[2023-01-08] MEDS: IOPAMIDOL 15 ML VIAL 3 ML INJ (13:15)
[2023-01-08 13:18] VITALS: BP 137/78; PULSE 99; RESP 24; O2SAT 98
[2023-01-08 13:24] VITALS: BP 148/65; PULSE 97; RESP 22; O2SAT 99
[2023-01-08 13:30] VITALS: BP 129/80; PULSE 95; RESP 18; O2SAT 98
[2023-01-08 13:35] VITALS: BP 147/67; PULSE 82; RESP 20; O2SAT 99
--- NOTE | 2023-01-08 13:35 | P.PCN_ITS ---
Date/Time/Diagnoses Date of procedure: 01/08/23 Time of procedure: 13:00 Procedure Notes Physician: Walter Villeda Total Fluoroscopy time (seconds): 24 Total sedation minutes: 0 Procedure in detail & Post-procedure care: L3-4 Interlaminar Epidural Steroid Injection Indications: Casie is referred by Dr. Egan for treatment of lumbar radi culopathy with low back and leg pain. Preoperative diagnosis: Lumbar radiculopathy Postoperative diagnosis: Same Focused Examination: Ax3 Mood and affect are normal Vital Signs: VSS ASA: 2 Consent: Following review of allergies and potential side effects/complications, including, but not necessarily limited to, infection, allergic reaction, local tissue breakdown, stroke, temporary or permanent nerve injury, paralysis, and possible , the patient indicated that they understood and agreed to proceed.? An informed consent document was signed by the patient, witnessed by a nurse and placed in the patient's chart.? Additionally, other treatment options including medications and physical therapy were reviewed with the patient. All questions were answered. Site was then marked. Anesthesia: local Position: Prone Monitoring: NIBP, Pulse oximetry, 3 lead EKG Needle used: 18 G 3.5? Tuohy Contrast: Isovue 300M Injectate: Depomedrol 80mg with 0.25% Bupivacaine 2 mL Technique: The skin was prepped with chloraprep and then draped in a sterile fashion. Time out was performed as per protocol. Oxygen applied via NC. Skin and subcutaneous structures of the needle entry site was then infiltrated with 3 mL of lidocaine 1%. Under AP, lateral and contralateral oblique fluoroscopic control, the Tuohy needle was guided into the L3-4 epidural space. The space was accessed with loss of resistance technique. 2 mL Isovue 300M was then injected and the spread was consistent with the epidural space. There was no evidence for intravascular or intrathecal uptake. After negative aspiration, the above- mentioned injectate was then slowly administered and the needle withdrawn. The patient expressed no unusual discomfort or paresthesias during the injection. Band-Aids applied to injection sites. EBL: less than 1 ml Complications: None Post Procedure: Patient was taken to the recovery and monitored. The patient was provided a Pain Log to continue to record the patient's response to the target- specific procedure prior to the patient's follow-up visit with the referring physician. Patient was stable upon discharge. Detailed post procedure instructions were provided. Patient was asked to call in the event of worsening pain, fever, weakness, numbness or bladder or bowel incontinence.
== END 2023-01-08 13:40 | disposition home or self-care (01) ==
LOC: RAD 12:27
PROVIDERS: Family Provider Physician Assistant; PCP Physician Assistant; Referring Provider Anesthesiology; Visit Provider Anesthesiology
DX: M54.16 Radiculopathy, lumbar region (principal)
CPT/HCPCS: 62323; J1040; J3490

== ENCOUNTER → 2023-02-16 13:34 | Outpatient (CLI) | payer MEDICARE, OTHER, SELFPAY ==
[2020-05-09 01:52] VITALS: BMI 25.0
--- NOTE | 2023-02-16 13:36 | DI.RAD.S_ITS ---
PROCEDURE: XR KNEE RT 3V INDICATIONS: Right knee pain TECHNIQUE: 3 views of the knee were acquired. COMPARISON: None. FINDINGS: Bones: No fractures or dislocations. No suspicious bony lesions. Moderate tricompartment joint space loss and marginal spur formation. This is more pronounced compared to the contralateral side. Soft tissues: No joint effusion. No suspicious soft tissue calcifications. IMPRESSION: 1. Moderate tricompartment osteoarthritic changes, more pronounced compared to the left. Dictated by: Joan Martines M.D. on 02/16/2023 at 16:45 Approved by: Joan Martines M.D. on 02/16/2023 at 16:46
--- NOTE | 2023-02-16 13:36 | DI.RAD.S_ITS ---
PROCEDURE: XR KNEE LT 3V INDICATIONS: Left knee pain TECHNIQUE: 3 views of the knee were acquired. COMPARISON: None. FINDINGS: Bones: No fractures or dislocations. No suspicious bony lesions. Degenerative joint space loss and spurring in the patellofemoral compartment. Soft tissues: No joint effusion. No suspicious soft tissue calcifications. IMPRESSION: 1. Mainly patellofemoral compartment degenerative changes. Dictated by: Joan Martines M.D. on 02/16/2023 at 16:44 Approved by: Joan Martines M.D. on 02/16/2023 at 16:45
== END ==
PROVIDERS: Family Provider Physician Assistant; PCP Physician Assistant; Referring Provider Anesthesiology; Visit Provider Anesthesiology
DX: M25.561 Pain in right knee (principal); M25.562 Pain in left knee; M48.062 Spinal stenosis, lumbar region with neurogenic claudication; M47.26 Other spondylosis with radiculopathy, lumbar region; G89.29 Other chronic pain
CPT/HCPCS: 73562; 99213

== ENCOUNTER → 2024-01-14 15:10 | Outpatient (CLI) | payer MEDICARE, OTHER, SELFPAY ==
[2020-05-09 01:52] VITALS: BMI 25.0
--- NOTE | 2024-01-14 | DI.MG.S_ITS ---
BILATERAL DIGITAL SCREENING MAMMOGRAM 3D/2D WITH CAD: 01/14/2024 CLINICAL: Routine screening. Family history of breast cancer. Comparison is made to exams dated: 10/30/2021 mammogram, 01/27/2019 mammogram, and 10/12/2017 mammogram - [facility]. There are scattered areas of fibroglandular density in both breasts (category b / 25%-50% glandular tissue). Current study was also evaluated with a Computer Aided Detection (CAD) system. There is a biopsy clip in the left breast. No significant masses, calcifications, or other findings are seen in either breast. There has been no significant interval change. IMPRESSION: NEGATIVE There is no mammographic evidence of malignancy. A 1 year screening mammogram is recommended. Based on the Tyrer Cuzick model (a risk assessment model) the patient's lifetime risk is 5.6% and her 10 year risk is 0.0%. According to the ACR, ACS, and NCCN guidelines, an annual breast MRI exam along with mammogram is recommended if the patient's lifetime risk is 20% or greater. This exam was interpreted at Station ID: [id number]. NOTE: For mammograms, a report in lay terms will be sent to the patient. Approximately 15% of breast malignancies will not be visualized mammographically. In the management of a palpable breast mass, a negative mammogram must not discourage biopsy of a clinically suspicious lesion. Electronically Signed By: Karlos zamora/valentine:01/15/2024 08:12:19 letter sent: Normal Exam ACR BI-RADS Category 1: Negative 3341F
== END ==
PROVIDERS: Family Provider Physician Assistant; PCP Physician Assistant; Referring Provider Physician Assistant; Visit Provider Physician Assistant
DX: Z12.31 Encounter for screening mammogram for malignant neoplasm of breast (principal); Z80.3 Family history of malignant neoplasm of breast; R92.323 Mammographic fibroglandular density, bilateral breasts
CPT/HCPCS: 77063; 77067

== ENCOUNTER 2024-04-06 12:16 | Outpatient (CLI) | payer MEDICARE, OTHER, SELFPAY ==
[2020-05-09 01:52] VITALS: BMI 25.0
[2024-04-06 12:50] VITALS: BP 138/72; PULSE 75; RESP 16; TEMP 36.5; O2SAT 99
--- NOTE | 2024-04-06 13:00 | DI.RAD.S_ITS ---
PROCEDURE: PAIN L INTERLAMINAR/CAUDAL INJ INDICATIONS: LUMBAR RADICULOPATHY COMPARISON: [facility], XA, PAIN L INTERLAMINAR/CAUDAL INJ, 01/08/2023, 14:12. FINDINGS: Fluoroscopic spot filming was performed to verify placement of spinal needles at the overlying L3-4 level(s), as labeled on the films. Appropriate location(s) of the needle tip(s) was confirmed by injection of iodinated contrast. IMPRESSION: Needle and contrast placement overlying L3-4. Dictated by: Indigo Beltrán M.D. on 04/06/2024 at 14:37 Approved by: Indigo Beltrán M.D. on 04/06/2024 at 14:38
[2024-04-06 13:07] VITALS: BP 149/70; PULSE 78; RESP 15; O2SAT 100
[2024-04-06] MEDS: DEXAMETHASONE 10 MG/ML VIAL INJ (13:07)
[2024-04-06] MEDS: iopamidoL 15 ML VIAL 3 ML INJ (13:07)
[2024-04-06 13:12] VITALS: BP 139/80; PULSE 80; RESP 10; O2SAT 100
[2024-04-06 13:20] VITALS: BP 110/65; PULSE 82; RESP 15; O2SAT 100
--- NOTE | 2024-04-06 16:56 | P.PCN_ITS ---
Date/Time/Diagnoses Date of procedure: 04/06/24 Time of procedure: 13:00 Procedure Notes Physician: Walter Villeda Total Fluoroscopy time (seconds): 15 Total sedation minutes: 0 Procedure in detail & Post-procedure care: L3-4 Interlaminar Epidural Steroid Injection Indications: Casie is presenting for treatment of lumbar radiculopathy with low back and leg pain. Preoperative diagnosis: Lumbar radiculopathy Postoperative diagnosis: Same Focused Examination: Ax3 Mood and affect are normal Vital Signs: VSS Consent: Following review of allergies and potential side effects/complications, including, but not necessarily limited to, infection, allergic reaction, local tissue breakdown, stroke, temporary or permanent nerve injury, paralysis, and possible , the patient indicated that they understood and agreed to proceed.? An informed consent document was signed by the patient, witnessed by a nurse and placed in the patient's chart.? Additionally, other treatment options including medications and physical therapy were reviewed with the patient. All questions were answered. Site was then marked. Anesthesia: Local Position: Prone Monitoring: NIBP, Pulse oximetry, 3 lead EKG Needle used: 18 G 3.5? Tuohy Contrast: Isovue 300M Injectate: Dexamethasone 10 mg with 1% lidocaine 2 mL Technique: The skin was prepped with chloraprep and then draped in a sterile fashion. Time out was performed as per protocol. Oxygen applied via NC. Skin and subcutaneous structures of the needle entry site was then infiltrated with 3 mL of lidocaine 1%. Under AP, lateral and contralateral oblique fluoroscopic control, the Tuohy needle was guided into the L3-4 epidural space. The space was accessed with loss of resistance technique. Isovue 300M was then injected and the spread was consistent with the epidural space. There was no evidence for intravascular or intrathecal uptake. After negative aspiration, the above- mentioned injectate was then slowly administered and the needle withdrawn. The patient expressed no unusual discomfort or paresthesias during the injection. Band-Aids applied to injection sites. EBL: less than 1 ml Complications: None Post Procedure: Patient was taken to the recovery and monitored. The patient was provided a Pain Log to continue to record the patient's response to the target- specific procedure prior to the patient's follow-up visit with the referring physician. Patient was stable upon discharge. Detailed post procedure instructions were provided. Patient was asked to call in the event of worsening pain, fever, weakness, numbness or bladder or bowel incontinence.
== END 2024-04-06 13:24 | disposition home or self-care (01) ==
LOC: RAD 12:17
PROVIDERS: Family Provider Physician Assistant; PCP Physician Assistant; Referring Provider Anesthesiology; Visit Provider Anesthesiology
DX: M54.16 Radiculopathy, lumbar region (principal)
CPT/HCPCS: 62323; J1100

== ENCOUNTER → 2024-11-26 14:02 | Outpatient (CLI) | payer MEDICARE, OTHER, SELFPAY ==
[2020-05-09 01:52] VITALS: BMI 25.0
== END ==
PROVIDERS: Family Provider Physician Assistant; PCP Physician Assistant; Referring Provider Nurse Practitioner Family; Visit Provider Nurse Practitioner Family
DX: K14.8 Other diseases of tongue (principal)
CPT/HCPCS: 87102

== ENCOUNTER → 2025-11-07 10:49 | Outpatient (CLI) | payer MEDICARE, SELFPAY ==
[2020-05-09 01:52] VITALS: BMI 25.0
--- NOTE | 2025-11-07 10:51 | DI.MRI.S_ITS ---
PROCEDURE: MR LUMBAR SPINE WO CON INDICATIONS: low back pain TECHNIQUE: Noncontrast sagittal T1 spin echo and T2 fast echo, sagittal STIR, and T2 fast spin echo through the lumbar spine. In cases with scoliosis, additional coronal T2 fast spin echo may be performed. COMPARISON: [facility], MR, MR LUMBAR SPINE WO CON, 10/31/2022, 12:23. FINDINGS: Image quality: Excellent. Alignment and Curvature: There is trace, approximately 3 millimeters L3-L4 anterolisthesis. Bone Marrow: Mild Modic type 2 reactive endplate changes adjacent to the L5-S1 disc. Modic type 1 reactive endplate changes adjacent to the L3-L4 and L4-L5 disc. No acute vertebral body compression fractures. Spinal Cord: Conus medullaris terminates at the L1-L2 disc level. Visualized cord demonstrates normal signal and size. Paraspinous Soft Tissues: No paravertebral masses. T12-L1: Loss of disc signal and mild loss of disc height. Moderate, diffuse disc bulge. Mild narrowing of the central canal. No neural foraminal narrowing. No neural compression. L1-L2: Slight loss of disc signal. Mild, diffuse disc bulge. No central stenosis. No neural foraminal narrowing. No neural compression. L2-L3: Loss of disc signal. Mild, diffuse disc bulge. No central stenosis. No neural foraminal narrowing. No neural compression. L3-L4: Loss of disc signal and height. Moderate, diffuse disc bulge. Moderate bilateral facet hypertrophy. Moderate narrowing of the central canal. Moderate bilateral neural foraminal narrowing. No neural compression. L4-L5: Loss of disc signal and height. Mild to moderate diffuse disc bulge. Mild bilateral facet hypertrophy. Mild narrowing of the central canal. Mild bilateral neural foraminal narrowing. No neural compression. L5-S1: Loss of disc signal and height. Mild to moderate diffuse disc bulge. Mild bilateral facet hypertrophy. No central stenosis. Mild bilateral neural foraminal narrowing. No neural compression. IMPRESSION: Multilevel degenerative disc disease. Multilevel facet arthropathy. No severe central canal stenosis. No severe neural foraminal stenosis. No neural compression. Dictated by: Sushila Bardales MD, PhD on 11/07/2025 at 12:37 Approved by: Sushila Bardales MD, PhD on 11/07/2025 at 12:40
== END ==
LOC: MRI 10:50
PROVIDERS: Family Provider Physician Assistant; PCP Physician Assistant; Referring Provider Physician Assistant; Visit Provider Physician Assistant
DX: M51.16 Intervertebral disc disorders with radiculopathy, lumbar region (principal); M51.17 Intervertebral disc disorders with radiculopathy, lumbosacral region; M47.26 Other spondylosis with radiculopathy, lumbar region; M47.27 Other spondylosis with radiculopathy, lumbosacral region; M54.50 Low back pain, unspecified; G89.29 Other chronic pain
CPT/HCPCS: 72148